=== PATIENT | male | born 1965 | race Two or more races ===

== ENCOUNTER 2022-06-06 09:35 | Outpatient (CLI) | payer OTHER | END 2022-06-06 09:37 | disposition home or self-care (01) | LOC: SONOGRAMA 09:35 | PROVIDERS: ATTEND Pathology Anatomic Pathology & Clinical Pathology | DX: E04.2 Nontoxic multinodular goiter (principal); D34 Benign neoplasm of thyroid gland ==

== ENCOUNTER 2024-08-12 09:45 | Outpatient (CLI) | payer OTHER | END 2024-08-12 09:55 | disposition home or self-care (01) | LOC: SONOGRAMA 09:45 | DX: E04.2 Nontoxic multinodular goiter (principal); E03.8 Other specified hypothyroidism; E05.01 Thyrotoxicosis with diffuse goiter with thyrotoxic crisis or storm ==